=== PATIENT | female | born 1960 | race Two or more races ===

== ENCOUNTER 2018-02-08 17:30 | Emergency (ER) | payer OTHER ==
[2018-02-08 18:00] LABS: BILIRUBIN,URINE NEGATIVE (NEGATIVE); GLUCOSE, URINE (UA) NEGATIVE (NEGATIVE); KETONES,URINE (UA) NEGATIVE (NEGATIVE); LEUKOCYTE ESTERASE, URINE MODERATE (NEGATIVE); NITRITE,URINE NEGATIVE (NEGATIVE); OCCULT BLOOD,URINE SMALL (NEGATIVE); PH,URINE 6.5 PH (5.0-7.5); PROTEIN,URINE NEGATIVE (NEGATIVE); UROBILINOGEN,URINE 0.2 (NORMAL) E.U./dL (NORMAL)
[2018-02-08 18:02] LABS: CLARITY,URINE CLEAR (CLEAR)
--- NOTE | 2018-02-08 18:22 | ED Physician Documentation ---
PD HPI FEMALE - Stated complaint Stated Complaint: FEMALE - Chief complaint Chief Complaint: UTI - History obtained from History obtained from: Patient - History of Present Illness Timing - onset: Yesterday Timing - duration: Days (2) Timing - details: Abrupt onset, Still present, Waxing and waning Associated symptoms: Abdominal pain, Dysuria, Urinary frequency, Hematuria. No: Fever, Vaginal bleeding, Vaginal discharge, Genital sore/lesion Contributing factors: No: Exposed to STD Similar symptoms before: Diagnosis (utis in the past) Recently seen: Not recently seen Review of Systems Constitutional: denies: Fever, Chills, Myalgias : reports: Dysuria, Frequency. 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: Breast cancer - Past Surgical History Past Surgical History: Yes /GRAPHICS PRODUCTION SPECIALIST: section, Hysterectomy, Other - Present Medications Home Medications: Ambulatory Orders Medication Instructions Recorded Confirmed Aspirin [Aspir 81] 81 mg pe 01/09/14 01/09/14 Dicyclomine [Bentyl] 10 mg 01/09/14 01/09/14 Levothyroxine [Synthroid] 25 mcg 01/09/14 01/09/14 Propranolol [Inderal] 10 mg 01/09/14 01/09/14 Simvastatin 1 01/09/14 01/09/14 Phenazopyridine HCl [Pyridium] 200 mg PO TID PRN #6 tablet 02/08/18 Sulfamethox/Trimeth 800/160 1 each PO BID #14 tablet 02/08/18 [Bactrim Ds 800/160] - Allergies Allergies/Adverse Reactions: Allergies Allergy/AdvReac Type Severity Reaction Status Date / Time No Known Drug Allergies Allergy Verified 02/08/18 17:48 - Social History Does the pt smoke?: No Smoking Status: Never smoker Does the pt have substance abuse?: No PD ED PE NORMAL - Vitals Vital signs reviewed: Yes - General General: Alert and oriented X 3, No acute distress, Well developed/nourished - HEENT HEENT: Pharynx benign - Abdomen Abdomen: Soft, Non tender, Non distended - Female Female : Deferred - Back Back: No CVA TTP - Derm Derm: Normal color, Warm and dry Results - Vitals Vitals: Oxygen O2 Source Room air - Labs Labs: Microbiology 02/08/18 17:55 Urine Culture - Final Urine,Clean Catch No growth Laboratory Tests 02/08/18 17:55 Urine Color YELLOW Urine Clarity CLEAR Urine pH 6.5 Ur Specific [place] <=1.005 Urine Protein NEGATIVE Urine Glucose (UA) NEGATIVE Urine Ketones NEGATIVE Urine Occult Blood SMALL H Urine Nitrite NEGATIVE Urine Bilirubin NEGATIVE Urine Urobilinogen 0.2 (NORMAL) Ur Leukocyte Esterase MODERATE H Urine RBC 6-10 H Urine WBC 11-25 H Ur Squamous Epith Cells FEW Squamous Urine Bacteria Few Ur Microscopic Review INDICATED Urine Culture Comments INDICATED PD MEDICAL DECISION MAKING - ED course Complexity details: reviewed results, considered differential (urine has some indicators of infection and her symptoms are c/w UTI, and familar to her from other UTIs, so will treat as UTI for now. ), d/w patient Departure - Departure Disposition: Home, Self Care Clinical Impression: UTI (urinary tract infection) Qualifiers: Urinary tract infection type: acute cystitis Hematuria presence: without hematuria Qualified Code(s): N30.00 - Acute cystitis without hematuria Condition: Stable Record reviewed to determine appropriate education?: Yes Instructions: ED UTI Cystitis Female Follow-Up: VENKATESH KNOX [Primary Care Provider] - Prescriptions: Phenazopyridine HCl [Pyridium] 200 mg PO TID PRN #6 tablet PRN Reason: dysuria Sulfamethox/Trimeth 800/160 [Bactrim Ds 800/160] 1 each PO BID #14 tablet Comments: Drink lots of fluids. Tylenol ibuprofen if needed for pains. Phenazopyridine can help with the discomfort of urination and able to new urine a little orange colored. Bactrim antibiotic twice daily as directed. Recheck if your UTI symptoms are not improved over the next 2-3 days. Discharge Date/Time: 02/08/18 19:17
[2018-02-08 18:31] LABS: BACTERIA,URINE Few /HPF (None Seen); SQUAMOUS EPITHELIAL CELL,UR FEW Squamous (<= Few)
[2018-02-08] MEDS ORDERED: SULFAMETH/TRIMETH DS 800/160 MG TABLET PO STA (18:56)
[2018-02-08] MEDS ORDERED: NAPROXEN 250 MG TABLET PO STA (18:56)
[2018-02-08] MEDS ORDERED: ONDANSETRON ODT 4 MG TABLET TL STA (18:56)
[2018-02-08] MEDS ORDERED: PHENAZOPYRIDINE 100 MG TABLET PO STA (18:56)
[2018-02-08 19:17] VITALS: BP 138/84
== END 2018-02-08 19:17 | disposition home or self-care (01) ==
LOC: ED 17:30
DX: N30.00 Acute cystitis without hematuria (principal); Z85.3 Personal history of malignant neoplasm of breast; Z79.82 Long term (current) use of aspirin
CPT/HCPCS: 81001; 87086; 99283; A9270; Q0162; 81003

== ENCOUNTER 2018-02-12 22:54 | Emergency (ER) | payer OTHER ==
[2018-02-13 00:12] LABS: BASOPHILS # (AUTO) 0.1 10^3/uL (0.0-0.1); BASOPHILS % (AUTO) 0.8 %; EOSINOPHILS # (AUTO) 0.2 10^3/uL (0.0-0.7); EOSINOPHILS % (AUTO) 2.8 %; HGB - HEMOGLOBIN 13.9 g/dL (12.0-16.0); LYMPHOCYTES # (AUTO) 2.1 10^3/uL (1.5-3.5); LYMPHOCYTES % (AUTO) 23.5 %; MEAN CORPUSCULAR HEMOGLOBIN 32.8 pg (27.0-31.0); MEAN CORPUSCULAR HGB CONC 34.8 g/dL (32.0-36.0); MEAN CORPUSCULAR VOLUME 94.2 fL (81.0-99.0); MEAN PLATELET VOLUME 7.5 fL (7.9-10.8); MONOCYTES # (AUTO) 0.9 10^3/uL (0.0-1.0); MONOCYTES % (AUTO) 9.6 %; NEUTROPHILS # (AUTO) 5.6 10^3/uL (1.5-6.6); NEUTROPHILS % (AUTO) 63.3 %; PLT - PLATELET COUNT 242 10^3/uL (130-450); RED BLOOD COUNT 4.25 10^6/uL (4.20-5.40); RED CELL DISTRIBUTION WIDTH 13.5 % (12.0-15.0); WHITE BLOOD COUNT 8.9 x10^3/uL (4.8-10.8)
[2018-02-13 00:21] LABS: ALBUMIN 4.1 g/dL (3.2-5.5); ALBUMIN/GLOBULIN RATIO 1.2 (1.0-2.2); BILIRUBIN,TOTAL 0.4 mg/dL (0.2-1.0); CALCIUM 9.1 mg/dL (8.5-10.3); TOTAL PROTEIN 7.4 g/dL (6.7-8.2)
--- NOTE | 2018-02-13 00:47 | ED Physician Documentation ---
History of Present Illness - Stated complaint Stated Complaint: CHEST PRESSURE - Chief complaint Chief Complaint: Cardiac - History obtained from History obtained from: Patient - History of Present Illness Timing: Enter time (21:30), Today Improved by: nothing Worsened by: symptoms seem temporally related to doses of bactrim - Additonal information Additional information: started on bactrim for UTI (T+R from this ED 02/08), had LLE burning discomfort yesterday within 30-45 minutes of a dose. Tonight, at 9:30 PM, within 45 minutes of a dose of bactrim, she experienced chest tightness, generalized burning discomfort throughout her body but worst in chest and all extremities, nausea but no vomiting, and dyspnea. Symptoms have nearly resolved by the time of this evaluation Review of Systems Constitutional: reports: Myalgias. denies: Fever Cardiac: reports: Chest pain / pressure (burning, tightness). denies: Palpitations Respiratory: reports: Dyspnea. denies: Cough GI: reports: Nausea. 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 - Past Surgical History Past Surgical History: Yes /BUMPER MACHINE OPERATOR: section, Hysterectomy, Other - Present Medications Home Medications: Ambulatory Orders Medication Instructions Recorded Confirmed Aspirin [Aspir 81] 81 mg pe 01/09/14 01/09/14 Dicyclomine [Bentyl] 10 mg 01/09/14 01/09/14 Levothyroxine [Synthroid] 25 mcg 01/09/14 01/09/14 Propranolol [Inderal] 10 mg 01/09/14 01/09/14 Simvastatin 1 01/09/14 01/09/14 Phenazopyridine HCl [Pyridium] 200 mg PO TID PRN #6 tablet 02/08/18 Sulfamethox/Trimeth 800/160 1 each PO BID #14 tablet 02/08/18 [Bactrim Ds 800/160] Cranberry 02/13/18 Ergocalciferol [Vitamin D2] 02/13/18 Nitrofurantoin Monohyd/M-Cryst 100 mg PO BID #10 capsule 02/13/18 [Macrobid 100 mg Capsule] - Allergies Allergies/Adverse Reactions: Allergies Allergy/AdvReac Type Severity Reaction Status Date / Time No Known Drug Allergies Allergy Verified 02/08/18 17:48 - Social History Does the pt smoke?: No Smoking Status: Never smoker Does the pt drink ETOH?: Yes Does the pt have substance abuse?: No - Immunizations Immunizations are current?: Yes - POLST Patient has POLST: No PD ED PE NORMAL - Vitals Vital signs reviewed: Yes - General General: Alert and oriented X 3, No acute distress, Well developed/nourished - HEENT HEENT: Moist mucous membranes, Pharynx benign - Neck Neck: Supple, no meningeal sign - Cardiac Cardiac: RRR, No murmur - Respiratory Respiratory: No respiratory distress, Clear bilaterally - Abdomen Abdomen: Soft, Non tender - Derm Derm: Normal color, Warm and dry, No rash - Extremities Extremities: No edema - Neuro Neuro: Alert and oriented X 3 Results - Vitals Vitals: Vital Signs - 24 hr 02/12/18 02/13/18 02/13/18 22:57 00:12 01:00 Temperature 36.6 C Heart Rate 88 82 82 Respiratory 22 16 Rate Blood Pressure 147/72 H 118/75 133/72 H O2 Saturation 99 92 94 02/13/18 01:37 Temperature Heart Rate 81 Respiratory 18 Rate Blood Pressure 119/79 O2 Saturation 98 Oxygen O2 Source Room air - EKG (time done) No standard instances Rate: Rate (enter#) (88) Rhythm: NSR [place]: Normal Intervals: Normal [place] QRS: Normal Ischemia: Normal ST segments - Labs Labs: Laboratory Tests 02/12/18 02/12/18 02/12/18 23:45 23:45 23:45 WBC 8.9 RBC 4.25 Hgb 13.9 Hct 40.0 MCV 94.2 MCH 32.8 H MCHC 34.8 RDW 13.5 Plt Count 242 MPV 7.5 L Neut # (Auto) 5.6 Lymph # (Auto) 2.1 [place] # (Auto) 0.9 Eos # (Auto) 0.2 Baso # (Auto) 0.1 Absolute Nucleated RBC 0.00 Nucleated RBC % 0.0 Sodium 136 Potassium 4.4 Chloride 101 Carbon Dioxide 28 Anion Gap 7.0 BUN 21 H Creatinine 1.0 Estimated GFR (MDRD) 57 L Glucose 103 H Calcium 9.1 Total Bilirubin 0.4 AST 29 ALT 48 Alkaline Phosphatase 55 Troponin I < 0.04 Total Protein 7.4 Albumin 4.1 Globulin 3.3 Albumin/Globulin Ratio 1.2 Lipase 25 PD MEDICAL DECISION MAKING - ED course Complexity details: reviewed results, re-evaluated patient, considered differential, d/w patient ED course: Symptoms are unusual for reaction to the Bactrim, but since there are alternative medications for UTI, my recommendation is to discontinue the Bactrim. I do note that the urine culture did not grow out any bacteria, and thus I recommended no antibiotics. Patient strongly prefers to continue on an antibiotic; she says she has had several UTIs in the past and her urinary symptoms are following the same pattern as previous. Macrobid given in ED and prescribed. Departure - Departure Disposition: 01 Home, Self Care Clinical Impression: Chest pain Qualifiers: Chest pain type: other chest pain Qualified Code(s): R07.89 - Other chest pain Condition: Good Instructions: ED Chest Pain Atypical Unkn Cause Follow-Up: VENKATESH KNOX [Primary Care Provider] - Prescriptions: Nitrofurantoin Monohyd/M-Cryst [Macrobid 100 mg Capsule] 100 mg PO BID #10 capsule Discharge Date/Time: 02/13/18 01:40
[2018-02-13] MEDS ORDERED: NITROFURANTOIN MACRO 100 MG CAPSULE PO STA (01:12)
[2018-02-13 01:38] VITALS: BP 119/79
== END 2018-02-13 01:40 | disposition home or self-care (01) ==
LOC: ED 22:54
DX: R07.89 Other chest pain (principal); N39.0 Urinary tract infection, site not specified; I10 Essential (primary) hypertension; E78.00 Pure hypercholesterolemia, unspecified; E03.9 Hypothyroidism, unspecified; C50.919 Malignant neoplasm of unspecified site of unspecified female breast; Z79.82 Long term (current) use of aspirin
CPT/HCPCS: 36415; 80053; 83690; 84484; 85025; 93005; 99283; 99284; A9270

== ENCOUNTER 2023-06-09 20:49 | Outpatient (CLI) | payer OTHER ==
--- NOTE | 2023-06-10 13:36 | Ultrasound Report ---
PROCEDURE: Extremity Soft Tissue Limited INDICATIONS: MASS ON ACHILLES TENDON TECHNIQUE: Real-time scanning was performed of the Achilles tendon, with image documentation. COMPARISON: None. FINDINGS: Targeted ultrasound of the area of concern demonstrates the Achilles tendon, which has par tial hypoechoic signal extending into the tendon, most consistent with a partial tear. There is surro unding hyperemia. IMPRESSION: Partial tear of the Achilles tendon, with surrounding hyperemia favoring edema. Abscess is a consider ation but significantly less likely. Reviewed by: Ashu Perez MD on 06/10/2023 1:35 PM PDT Approved by: Ashu Perez MD on 06/10/2023 1:35 PM PDT Station ID: [id number]
== END 2023-06-09 20:50 | disposition home or self-care (01) ==
LOC: DI 20:49
PROVIDERS: ATTEND Family Medicine
DX: S86.012A Strain of left Achilles tendon, initial encounter (principal)

== ENCOUNTER 2023-06-24 08:00 | Outpatient (CLI) | payer OTHER ==
--- NOTE | 2023-06-24 17:33 | XRAY Report ---
PROCEDURE: Ankle 3 View LT INDICATIONS: LEFT ANKLE PAIN TECHNIQUE: 3 views of the ankle were acquired. COMPARISON: None. FINDINGS: Bones: No fractures or dislocations. Ankle mortise is normally aligned. No suspicious bony lesions . Soft tissues: No tibiotalar joint effusion. Achilles tendon appears normal. Small plantar and Achi lles calcaneal enthesophytes. Mild diffuse subcutaneous edema. IMPRESSION: No acute bony abnormality. If there remains a high clinical concern for fracture, consider cross-sect ional imaging now. If pain persists, consider repeat x-ray in 10-14 days or cross-sectional imaging. Reviewed by: Wilton Marinelli MD on 06/24/2023 5:32 PM PDT Approved by: Wilton Marinelli MD on 06/24/2023 5:32 PM PDT Station ID: [id number]
== END 2023-06-24 23:59 | disposition home or self-care (01) ==
LOC: DI.WOS 08:00
PROVIDERS: ATTEND Physician Assistant Surgical
DX: M79.672 Pain in left foot (principal)